=== PATIENT | male | born 1980 ===

== ENCOUNTER 2016-07-22 20:54 | Emergency (ER) | payer SELFPAY ==
[2016-07-22 21:13] VITALS: BP 132/83
--- NOTE | 2016-07-22 21:25 | UC ---
Respiratory Complaint HPI - HPI Summary HPI Summary: partner was positive for the flu on Monday, he has never had flu vaccine and is now having body aches cough and chills-Pt wants to start on Tamiflu - History of Current Complaint Chief Complaint: UCGeneralIllness Stated Complaint: FLU LIKE SYMPTOMS Time Seen by Provider: 07/22/16 21:04 Hx Obtained From: Patient Onset/Duration: Sudden Onset, Lasting Days - 1, Still Present Timing: Constant Severity Initially: Moderate Severity Currently: Moderate Character: Cough: Nonproductive Aggravating Factors: Nothing Alleviating Factors: Nothing Associated Signs And Symptoms: Positive: Fever, Chills, URI - Allergies/Home Medications Allergies/Adverse Reactions: Allergies Allergy/AdvReac Type Severity Reaction Status Date / Time Oxycodone [From Percocet] Allergy See Comment Verified 07/22/16 21:14 Penicillins Allergy Unknown Verified 07/22/16 21:13 Reaction Details Home Medications: Home Medications Dayquil Q4HR 07/22/16 [History] PMH/Surg Hx/FS Hx/Imm Hx Previously Healthy: Yes - Surgical History Surgical History: Yes Surgery Procedure, Year, and Place: Oral surgeries, Bilateral knee surgies x5 - Family History Known Family History: Positive: None - Social History Occupation: Employed Full-time Lives: With Family Alcohol Use: Rare Substance Use Type: None Smoking Status (MU): Never Smoked Tobacco Household Exposure Type: Cigarettes Review of Systems Constitutional: Chills, Fatigue Skin: Negative Eyes: Negative ENT: Negative Respiratory: Cough Cardiovascular: Negative Gastrointestinal: Negative Genitourinary: Negative Motor: Negative Neurovascular: Negative Musculoskeletal: Arthralgia, Myalgia Neurological: Negative Psychological: Negative All Other Systems Reviewed And Are Negative: Yes Physical Exam Triage Information Reviewed: Yes Appearance: Well-Appearing, No Pain Distress, Ill-Appearing - mild Vital Signs: Initial Vital Signs Temp 99.8 F 07/22/16 21:07 Pulse 104 07/22/16 21:07 Resp 18 07/22/16 21:07 BP 132/83 07/22/16 21:07 Pulse Ox 96 07/22/16 21:07 Vital Signs Reviewed: Yes Eye Exam: Normal Eyes: Positive: Conjunctiva Clear ENT Exam: Normal ENT: Positive: Normal ENT inspection, Hearing grossly normal, Pharynx normal, TMs normal. Negative: Nasal congestion, Nasal drainage, Tonsillar swelling, Tonsillar exudate, Trismus, Muffled/hoarse voice Neck exam: Normal Neck: Positive: Supple, Nontender, No Lymphadenopathy Respiratory Exam: Normal Respiratory: Positive: Chest non-tender, Lungs clear, Normal breath sounds, No respiratory distress, No accessory muscle use Cardiovascular Exam: Normal Cardiovascular: Positive: No Murmur, Pulses Normal, Brisk Capillary Refill, Tachycardia Abdominal Exam: Normal Abdomen Description: Positive: Nontender, No Organomegaly, Soft Bowel Sounds: Positive: Present Musculoskeletal Exam: Normal Musculoskeletal: Positive: Strength Intact, ROM Intact, No Edema Neurological Exam: Normal Neurological: Positive: Alert, Muscle Tone Normal Psychological Exam: Normal Psychological: Positive: Normal Response To Family Skin Exam: Normal UC Diagnostic Evaluation - Laboratory O2 Sat by Pulse Oximetry: 96 Diagnostic Studies Comment: influenza (-) Respiratory Course/Dx - Course Course Of Treatment: tamiflu, increase fluids, tylenol, ibuprofen, follow with pcp - Differential Dx/Diagnosis Differential Diagnosis/HQI/PQRI: Asthma, Influenza, Laryngitis, Lower Resp Infection Provider Diagnoses: Clinical Dx Influenza A Discharge - Discharge Plan Condition: Stable Disposition: HOME Prescriptions: Oseltamivir CAP* [Tamiflu CAP*] 75 mg PO BID #9 cap Patient Education Materials: Influenza (ED) Referrals: [facility] [place] [facility]FERR[facility] [Outside] - 1 Week Additional Instructions: Your symptoms and your recent exposure to flu is very suspicious for your illness to be flu as well
[2016-07-22] MEDS ORDERED: Oseltamivir CAP* 75 MG PO ONE (21:46)
== END 2016-07-22 22:08 | disposition home or self-care (01) ==
LOC: UCEAST 20:54
DX: J10.1 Influenza due to other identified influenza virus with other respiratory manifestations (principal); Z88.5 Allergy status to narcotic agent; Z88.0 Allergy status to penicillin; Z77.22 Contact with and (suspected) exposure to environmental tobacco smoke (acute) (chronic)
CPT/HCPCS: 87502; 99202; A9270-GY; G0463